=== PATIENT | female | born 1980 | race Asian ===

== ENCOUNTER → 2021-01-17 12:22 | Outpatient (CLI) | payer OTHER, SELFPAY ==
--- NOTE | 2021-01-17 12:23 | DI.US.S_ITS ---
PROCEDURE: US OB <= 14 WEEKS FETUS INDICATIONS: BLEEDING OUTSIDE/PRIOR DATING DATA: Last menstrual period (LMP): 11/27/20 LMP-based estimated date of delivery (WALE): 09/03/21. First dating scan (date and location): This study Estimated date of delivery (WALE) from first dating scan: 09/10/21 +/-5 days. TECHNIQUE: Real-time scanning was performed of the fetus and maternal pelvic organs, with image documentation. Endovaginal scanning was also performed to better visualize the fetus and maternal ovaries. COMPARISON: None. FINDINGS: Embryo: 6 mm crown-rump length, correlates with a gestational age estimate of 6 weeks 2 days. No cardiac activity was observed. Yolk sac was identified. The gestational sac is flaccid and irregular in its margination. Measurement variability in dating: +/- 4 weeks by LMP, +/- 7 days by mean sac diameter (use before 6 weeks gestation if crown-rump length not able to be measured), +/- 5 days by crown-rump length (up to 8 weeks 6 days gestation), +/- 7 days by crown-rump length (up to 13 weeks 6 days gestation). Maternal organs: Ovaries not seen.. IMPRESSION: Apparent demise, involuting gestational sac. No cardiac activity seen. Dictated by: Jeremias Tomas M.D. on 01/17/2021 at 13:39 Approved by: Jeremias Tomas M.D. on 01/17/2021 at 13:42
== END ==
PROVIDERS: PCP Family Medicine; Referring Provider Family Medicine; Visit Provider Family Medicine
DX: O20.9 Hemorrhage in early pregnancy, unspecified (principal)
CPT/HCPCS: 76801; 76817

== ENCOUNTER → 2021-01-23 12:34 | Outpatient (CLI) | payer OTHER, SELFPAY ==
--- NOTE | 2021-01-23 12:34 | DI.US.S_ITS ---
PROCEDURE: US OB TRANSVAGINAL INDICATIONS: /missed AB OUTSIDE/PRIOR DATING DATA: Last menstrual period (LMP): 11/27/2020 . LMP-based estimated date of delivery (WALE): 09/03/2021 . First dating scan (date and location): 01/17/2021, . Estimated date of delivery (WALE) from first dating scan: 09/10/2021. TECHNIQUE: Real-time scanning was performed of the fetus, with image documentation. Endovaginal scanning: Performed COMPARISON: [facility], OB <= 14 WEEKS FETUS, 01/17/2021, 12:54. FINDINGS: Nonviable early 1st trimester intrauterine . [place]-rump length without heartbeat. Previously, crown-rump length measured 0.6 cm, 6 weeks 2 days. Currently, it measures 0.5 cm, 6 weeks 1 day. IMPRESSION: Nonviable early 1st trimester intrauterine . Dictated by: Reilly Ortiz M.D. on 01/23/2021 at 14:41 Approved by: Reilly Ortiz M.D. on 01/23/2021 at 14:44
[2021-01-23 14:34] LABS: HCG Quantitative /Beta subunit 40775 mIU/mL
== END ==
PROVIDERS: PCP Family Medicine; Referring Provider Family Medicine; Visit Provider Family Medicine
DX: O02.1 Missed abortion (principal)
CPT/HCPCS: 36415; 76817; 84702

== ENCOUNTER → 2021-01-26 15:42 | Outpatient (CLI) | payer OTHER, SELFPAY ==
[2021-01-26 16:53] LABS: HCG Quantitative /Beta subunit 5418.8 mIU/mL
== END ==
PROVIDERS: PCP Family Medicine; Referring Provider Family Medicine; Visit Provider Family Medicine
DX: O02.1 Missed abortion (principal)
CPT/HCPCS: 36415; 84702

== ENCOUNTER → 2021-02-03 11:32 | Outpatient (CLI) | payer OTHER, SELFPAY ==
[2021-02-03 12:07] LABS: COVID19 -Nasal RAPID Negative (Negative)
== END ==
PROVIDERS: PCP Family Medicine; Visit Provider Obstetrics & Gynecology
DX: Z01.812 Encounter for preprocedural laboratory examination (principal); Z20.822 Contact with and (suspected) exposure to COVID-19
CPT/HCPCS: 87635

== ENCOUNTER 2021-02-03 12:08 | Day surgery (SDC) | payer OTHER, SELFPAY ==
--- NOTE | 2021-02-03 | PATH_ITS ---
[facility] Accession Number: [id number] . 01 Material submitted: . product of conception - PRODUCTS OF CONCEPTION . 02 Diagnosis: Products of Conception: Few chorionic villi present in a background of secretory and decidualized endometrium. No evidence of neoplasm. MRV 02/08/2021 1153 Local . 02 Electronically signed: . Shen Rocha MD, PhD, Pathologist NPI- [id number] . 01 Gross description: . Received one formalin-filled container, labeled with the patient's name and products of conception is an 11 gram, 4.0 x 4.0 x 1.5 cm aggregate of multiple irregular fragments of red-brown fibrous soft tissue and clot material within a filter bag and Telfa pads; distinct villous tissue is not clearly identified, the specimen is entirely submitted. . Summary of sections: A1-5: multiple pieces. ([id number]) /MRV 02/06/2021 1434 Local . 02 Pathologist provided ICD-10: O03.4 . 02 CPT . 852528 Performed at: 01 [facility] [address] [facility], [place], [place] [id number] MD Boom Russell MD Phone: [phone] Performed at: 02 [facility] [address] [place], [place] [id number] MD Huyen Mcdaniel MD Phone: [phone]
[2021-02-03 12:53] VITALS: BP 146/93; PULSE 87; RESP 20; TEMP 36.4; O2SAT 100; BMI 24.3
[2021-02-03] MEDS: LACTATED RINGERS 1,000 ML 42 ML IV (13:20)
--- NOTE | 2021-02-03 14:18 | P.HP_ITS ---
History of Present Illness History of Present Illness Date Patient Seen: 02/03/21 Time Patient Seen: 14:18 Chief complaint: SDC Narrative: Patient is a 40-year-old 2 para 1 with retained products conception after a missed treated medically. Patient History Family & Social History Family History Father Diabetes mellitus History of heart disease Hypertension Stroke Social History: household members spouse,family lives independently Yes caregiver/support person No Tobacco & Substance use: Smoking Status Never smoker alcohol intake never Substance Use Type does not use Meds Home Medications and Allergies Home Medications Medication Instructions Recorded Confirmed Type hydrocodone 5 mg-acetaminophen 325 1 tab PO Q8H PRN #5 tab 01/23/21 02/03/21 Rx mg tablet ondansetron 4 mg disintegrating 4 mg PO Q8H PRN #7 tab 01/23/21 02/03/21 Rx tablet Allergies Allergy/AdvReac Type Severity Reaction Status Date / Time No Known Drug Allergies Allergy Unverified 02/01/21 15:03 Exam Vital Signs (past 8 hours): - 02/03/21 12:53 Temperature 97.5 F L Pulse Rate 87 Respiratory Rate 20 Blood Pressure 146/93 H Pulse Oximetry 100 Oxygen Delivery Method Room Air Narrative Exam Narrative: Generally: Patient is sitting up on gurney, no acute distress Lungs: Clear to auscultation bilaterally Cardiovascular: Regular rate and rhythm Abdomen: Soft and flat. No guarding or rebound tenderness. No hepatosplenomegaly. No masses palpable. Bimanual exam: An 8 week size anteverted uterus. No adnexal masses or tender ness. Ultrasound thickened endometrium with hyperechoic material Assessment & Plan Assessment & Plan narrative: Assessment: 40-year-old 2 para 1 with retained products of conception after medical treatment of a missed Plan: Suction D&C The risks, benefits, and alternatives to the procedure were explained to the patient. The risks including bleeding, infection, and uterine perforation. She understands these risks and agrees to proceed. A full par Q was held and consent form was signed. COVID-19 COVID-19 status: Negative Result date/Date tested (Pos, Neg/Pending): 02/03/21 Time Spent With Patient Time with patient: less than 15 minutes
--- NOTE | 2021-02-03 14:21 | PM.PREOP ---
Pre-operative Note COVID-19 COVID-19 status: Negative Result date/Date tested (Pos, Neg/Pending): 02/03/21 Interval Note History & Physical reviewed/Exam performed by Physician: Yes Changes to H&P: No H&P completed within 30 days and has changed as indicated here:: 02/03/21
--- NOTE | 2021-02-03 14:55 | PM.GYNOP.1 ---
Operative Date/Time/Diagnoses Date of procedure: 02/03/21 Time of procedure: 14:55 Pre-op diagnosis: Incomplete spontaneous miscarriage Post-op diagnosis: same Procedure & Clinicians Procedure: Procedures Operation Date: 02/03/21 14:00 Actual Procedures Side Surgeon page Lambert&Isela Pennington MD Indications: Incomplete spontaneous miscarriage Continued bleeding Surgeon: Nirmala Pennington Anesthesia Type: General (LMA) Operative Notes Findings: Eight week size anteverted uterus Large amount of products conception Closure Type: not applicable Specimen(s): products of conception Estimated blood loss (mL): 15 Blood products transfused: none Procedure in detail: After informed consent was obtained, the patient was taken to the operating room where she was placed in the dorsal supine position. After adequate LMA general anesthesia was achieved, she was placed in the dorsal lithotomy position, and prepped and draped in the usual sterile fashion. A time-out was performed. A bimanual exam was performed which revealed an 8 week size anteverted uterus. A bivalve speculum was placed into the vagina and the anterior lip of the cervix grasped with a single-tooth tenaculum. There was a large mass sitting at the cervical os. This was grasped with the polyp forceps. The cervical os was dilated until the # 8 curved plastic curette could pass easily into the endometrial cavity. Several passes with suction revealed tissue and blood. Gentle sharp curettage was performed yielding minimal amount of tissue. Several more passes with suction revealed blood only. The curette was removed from the uterus. The single-tooth tenaculum was removed from the anterior lip of the cervix. The bivalve speculum was removed from the vagina. Sponge, lap, and instrument counts were correct x2. The patient tolerated the procedure well, and was taken to PACU in stable condition. Complications: none Post-operative Condition: stable Disposition: PACU Plan for aftercare: Home after recovery
[2021-02-03 15:03] VITALS: BP 124/80; PULSE 100; RESP 14; TEMP 36.2; O2SAT 98
--- NOTE | 2021-02-03 15:06 | SUR.OPER ---
Lithotomy on padded OR bed, head on pillow, arms secured on padded arm boards at <90 degrees abduction. Legs secured in padded yellow fins stirrups.
[2021-02-03 15:07] VITALS: BP 126/90; PULSE 96; RESP 13; O2SAT 96
[2021-02-03 15:12] VITALS: BP 125/86; PULSE 97; RESP 15; O2SAT 99
[2021-02-03 15:19] VITALS: BP 116/86; PULSE 91; RESP 14; TEMP 36.7; O2SAT 98
[2021-02-03 15:45] VITALS: BP 114/79; PULSE 96; RESP 16; TEMP 37; O2SAT 98
--- NOTE | 2021-02-03 17:10 | SUR.PHASEII ---
Late entry: pt brought to [facility], given tea per pt request, wanting to sleep for 20 min. Pt ready to go, dressed and left unit in stable condition.
== END 2021-02-03 16:00 | disposition home or self-care (01) ==
PROVIDERS: PCP Family Medicine; Referring Provider Family Medicine; Visit Provider Obstetrics & Gynecology
PROC: (CPT 58120; principal; 2021-02-03 14:00)
DX: O03.4 Incomplete spontaneous abortion without complication (principal); Z3A.08 8 weeks gestation of pregnancy; Z20.822 Contact with and (suspected) exposure to COVID-19
CPT/HCPCS: 59812; 87635; J1100; J1885; J2250; J2405; J2704; J3010

== ENCOUNTER → 2021-08-11 09:14 | Outpatient (CLI) | payer OTHER, SELFPAY ==
--- NOTE | 2021-08-11 09:15 | DI.US.S_ITS ---
PROCEDURE: US OB <= 14 WEEKS FETUS INDICATIONS: DATING OUTSIDE/PRIOR DATING DATA: Last menstrual period (LMP): 06/08/2021 LMP-based estimated date of delivery (WALE): 03/15/2022 First dating scan (date and location): 08/11/2021 Estimated date of delivery (WALE) from first dating scan: 03/13/2022. TECHNIQUE: Real-time scanning was performed of the fetus and maternal pelvic organs, with image documentation. Endovaginal scanning was also performed to better visualize the fetus and maternal ovaries. COMPARISON: [facility], , OB <= 14 WEEKS FETUS, 01/17/2021, 12:54. FINDINGS: Embryo: Single intrauterine gestational sac is seen with fetus and yolk sac noted. [place]-rump length measures 2.6 cm. Estimated gestational age is 9 weeks, 3 days. Heart rate: 168 beats per minute. Measurement variability in dating: +/- 4 weeks by LMP, +/- 7 days by mean sac diameter (use before 6 weeks gestation if crown-rump length not able to be measured), +/- 5 days by crown-rump length (up to 8 weeks 6 days gestation), +/- 7 days by crown-rump length (up to 13 weeks 6 days gestation). Maternal organs: 1.3 x 1.2 x 1.2 cm hyperechoic area in lower uterine segment inferior to the gestational sac is seen and show no internal vascularity. Complex cystic area involving right ovary is noted and measures 2.2 x 1.5 x 1.3 cm in size. IMPRESSION: 1. Single live intrauterine gestation with fetus and yolk sac seen. Estimated gestational age is 9 weeks, 3 days. heart rate is 168 beats per minute. 2. Avascular homogeneously hyperechoic structure is seen in lower uterine segment as above and is of indeterminate etiology. 3. Likely corpus luteal cyst seen in right ovary as above. Dictated by: Carlos Laura M.D. on 08/11/2021 at 11:46 Approved by: Carlos Laura M.D. on 08/11/2021 at 11:50
== END ==
PROVIDERS: PCP Family Medicine; Referring Provider Obstetrics & Gynecology; Visit Provider Obstetrics & Gynecology
DX: Z34.81 Encounter for supervision of other normal pregnancy, first trimester (principal); Z3A.09 9 weeks gestation of pregnancy
CPT/HCPCS: 76801; 76817

== ENCOUNTER → 2021-08-28 08:13 | Outpatient (CLI) | payer OTHER, SELFPAY ==
[2021-08-28 10:38] LABS: Appearance Urine UA CLEAR; Bilirubin Urine UA NEGATIVE (NEGATIVE); Color Urine UA YELLOW; Glucose Urine UA NEGATIVE (Negative); Ketones Urine UA NEGATIVE (NEGATIVE); Leukocyte Esterase Urine UA 1+ (NEGATIVE); Nitrite Urine UA NEGATIVE (Negative); Occult Blood Urine UA 1+ (Negative); Protein Urine UA NEGATIVE (Negative); Urobilinogen Urine UA 0.2 E.U./dL (0.2)
[2021-08-28 10:39] LABS: Bacteria Urine Few (2-10); Culture Indicated Urine Cult Not Indicated; RBC Urine 1-5/HPF (0-5/HPF); Squamous Epithelial Cell Urine 5-10 /HPF (0-5/HPF); WBC Urine 1-5/HPF (0-5/HPF)
[2021-08-28 10:40] LABS: Add Manual Diff / Slide Review NO; Basophils Absolute Auto 0 /uL (0-100); Basophils Percent Auto 0.2 % (0-2); Eosinophils Absolute Auto 0 /uL (0-450); Eosinophils Percent Auto 0.5 % (2-4); Hematocrit 38.3 % (36-46); Hemoglobin 12.9 g/dL (12.0-16.0); Lymphocytes Absolute Auto 1200 /uL (1100-4500); Mean Corpuscular HGB Conc 33.8 % (30-36); Mean Corpuscular Hemoglobin 27.2 PG (26-34); Mean Corpuscular Volume 80.5 fL (80-100); Monocytes Absolute Auto 400 /uL (0-900); Monocytes Percent Auto 5.6 % (3-14); Neutrophils Absolute Auto 5200 /uL (1500-7000); Neutrophils Percent Auto 75.7 % (50-75); Platelet Count 271 X10^3/uL (150-400); Red Blood Cell Count 4.76 X10^6/uL (4.0-5.2); Red Cell Distribution Width 15.4 % (11.6-14.8); White Blood Cell Count 6.8 X10^3/uL (4.5-11.0)
[2021-08-28 17:46] LABS: HIV 1 & 2 Ab/Ag 4th Gen Combo NEGATIVE (NEGATIVE); Hep C Virus Ab w/Reflex Quant NEGATIVE s/c (NEGATIVE); Hepatitis B Surface Antigen NEGATIVE s/c (NEGATIVE)
[2021-08-29 07:00] LABS: RPR Screen Non Reactive (Non Reactive)
[2021-08-29 08:36] LABS: Varicella IgG Antibody 972 index (Immune >165)
== END ==
PROVIDERS: Referring Provider Obstetrics & Gynecology; Visit Provider Obstetrics & Gynecology
DX: Z36.0 Encounter for antenatal screening for chromosomal anomalies (principal); O09.521 Supervision of elderly multigravida, first trimester
CPT/HCPCS: 36415; 80055; 81003; 81015; 81420; 86787; 86803; 86850; 86900; 86901; 87086; 87389

== ENCOUNTER → 2021-09-21 09:28 | Outpatient (CLI) | payer OTHER, SELFPAY ==
[2021-09-21 10:01] LABS: COVID19 -Nasal RAPID Negative (Negative)
== END ==
PROVIDERS: Referring Provider Obstetrics & Gynecology; Visit Provider Obstetrics & Gynecology
DX: Z01.812 Encounter for preprocedural laboratory examination (principal); Z20.822 Contact with and (suspected) exposure to COVID-19
CPT/HCPCS: 87635

== ENCOUNTER → 2021-09-21 09:38 | Day surgery (SDC) | payer OTHER, SELFPAY ==
[2021-09-21] VITALS (8 sets, daily range): BP systolic 105–125; BP diastolic 68–83; PULSE 73–97; RESP 16–18; TEMP 36.4–36.9; O2SAT 94–99; BMI 25.5
--- NOTE | 2021-09-21 | PATH_ITS ---
[facility] Accession Number: [id number] . 01 Material submitted: . product of conception - PRODUCTS OF CONCEPTION . 02 Diagnosis: Products of Conception: Products of conception identified. [facility] 09/25/2021 1224 Local . 02 Electronically signed: . Linda Daily MD, Pathologist NPI- [id number] . 01 Gross description: . The specimen is received in formalin, labeled products of conception and consists of multiple [place]-pink to red-brown fragments of soft tissue and clotted blood measuring 6.0 x 4.0 x 3.0 cm in aggregate. Possible chorionic villi are identified. No parts are identified. Trench Pipe Layer Helper sections are submitted in cassettes A1-A4. ([id number]) /[facility] 09/22/2021 1531 Local . 02 Pathologist provided ICD-10: O02.1 . 02 CPT . 781197 Performed at: 01 [facility] [address] [place] [id number] MD Boom Russell MD Phone: [phone] Performed at: 02 [facility] [address] [place], [place] [id number] MD Huyen Mcdaniel MD Phone: [phone]
--- NOTE | 2021-09-21 10:06 | DI.US.S_ITS ---
PROCEDURE: US OB LIMITED INDICATIONS: DEMISE; PRE-OP OUTSIDE/PRIOR DATING DATA: Last menstrual period (LMP): 06/08/2021. LMP-based estimated date of delivery (WALE): 04/04/2022. First dating scan (date and location): 08/11/2021. Estimated date of delivery (WALE) from first dating scan: 03/13/2022. The calculations are made using the ultrasound WALE of 03/03/2022. TECHNIQUE: Real-time scanning was performed of the uterus, with image documentation. Endovaginal scanning: Was performed for better visualization COMPARISON: [facility], , US OB <= 14 WEEKS FETUS, 08/11/2021, 9:33. [facility], , US OB <= 14 WEEKS FETUS, 08/21/2021, 11:43. [facility], , US OB >= 14 WEEKS FETUS, 09/18/2021, 11:55. FINDINGS: The previously seen intrauterine gestation is no longer seen. There is moderate to prominent heterogeneous debris seen along the endometrial stripe, which measures 6.4 x 2.9 x 4.6 cm. Minimal, potential vascularity can be seen within this debris. IMPRESSION: Spontaneous miscarriage, with the previously seen intrauterine gestation no longer seen. There is a broad area of heterogeneous material along the endometrial stripe, with minimal vascularity, likely related to retained products of conception. Dictated by: King Sherman M.D. on 09/21/2021 at 10:03 Approved by: King Sherman M.D. on 09/21/2021 at 10:06
--- NOTE | 2021-09-21 11:22 | SUR.PREOP ---
Pt to u/s on arrival per Dr. Pennington, pt now available for surgery per Dr. Pennington.
[2021-09-21] MEDS: LACTATED RINGERS 1,000 ML 100 ML IV (11:27)
--- NOTE | 2021-09-21 11:47 | PM.HP.1 ---
History of Present Illness History of Present Illness Date Patient Seen: 09/21/21 Time Patient Seen: 11:47 Chief complaint: DILATION & EVACUATION Narrative: Patient is a 41-year-old 3 para 1 with a 15 week intrauterine demise. Patient was originally scheduled for a D&E today. She was given Cytotec to place intra vaginal last evening. This was 600 micro g. Patient placed a tablets at 10:00 p.m.. At midnight she started having some cramping and at 4:00 a.m. she had a gush of fluid and passed the baby and the placenta. On arrival to the hospital she had an ultrasound which showed retained products conception. We will proceed with a suction D&C. Patient History Medical History (Updated 08/21/21 @ 11:52 by Nirmala Pennington MD) Healthy female Surgical History (Updated 09/19/21 @ 07:54 by Tere Lozano RN) Hx of dilation and curettage (02/03/21) Family & Social History Family History (Updated 08/22/21 @ 19:27 by Gabi Rodriguez) Father Diabetes mellitus History of heart disease Hypertension Stroke Mother No problems noted. Grandmother Diabetes mellitus History of heart disease Grandfather Hypertension Grandmother Unknown family medical history Grandfather Unknown family medical history Social History: household members spouse,family lives independently Yes caregiver/support person No Tobacco & Substance use: Smoking Status Never smoker alcohol intake never Substance Use Type does not use Meds Home Medications and Allergies Home Medications Medication Instructions Recorded Confirmed Type ondansetron 4 mg disintegrating 4 mg PO Q8H PRN #7 tab 01/23/21 09/19/21 Rx tablet prenat.vits,mickey,rlj-hksa-dzapf 1 tab PO DAILY 08/15/21 09/19/21 History Allergies Allergy/AdvReac Type Severity Reaction Status Date / Time No Known Drug Allergies Allergy Verified 09/21/21 09:50 Exam Vital Signs (past 8 hours): - 09/21/21 09:54 Temperature 98.2 F Pulse Rate 97 H Respiratory Rate 16 Blood Pressure 116/80 Pulse Oximetry 97 Oxygen Delivery Method Room Air Narrative Exam Narrative: HEENT: No thyromegaly, no anterior cervical or supraclavicular lymphadenopathy. Lungs:Clear to auscultation bilaterally, no wheezes. Cardiovascular: Regular rate and rhythm, no murmurs, rubs, or gallops. Abdomen: No scars. No hepatosplenomegaly. No masses palpable. External genitalia: Blood on perineum Vagina: Bleeding Cervix: Normal Bimanual exam: 10 Week size uterus. Mobile. Assessment & Plan Assessment & Plan narrative: Assessment: 41-year-old 3 para 1 with an intrauterine demise at 15 weeks gestation, with passage of the fetus and placenta at home Retained products of conception by ultrasound today Plan: Suction D&C The risks, benefits, and alternatives to the procedure were explained to the patient. The risks including bleeding, infection, and uterine perforation. Patient understands these risks and agrees to proceed. A full par Q was held and consent form was signed. COVID-19 COVID-19 status: Negative Result date/Date tested (Pos, Neg/Pending): 09/21/21 Time Spent With Patient Time with patient: less than 30 minutes Critical Care time: I spent a total of [] minutes of critical care time on this patient's care today; this time is exclusive of procedural time.
--- NOTE | 2021-09-21 11:50 | PM.PREOP ---
Pre-operative Note COVID-19 COVID-19 status: Negative Result date/Date tested (Pos, Neg/Pending): 09/21/21 Interval Note History & Physical reviewed/Exam performed by Physician: Yes Changes to H&P: No H&P completed within 30 days and has changed as indicated here:: 09/21/21
[2021-09-21] MEDS: CEFAZOLIN 2 GM/20 ML SYRINGE IV (12:52)
--- NOTE | 2021-09-21 12:59 | SUR.OPER ---
Lithotomy on padded OR bed, head on pillow, arms secured on padded arm boards at <90 degrees abduction. Legs secured in padded yellow fins stirrups.
--- NOTE | 2021-09-21 13:10 | P.OP_ITS ---
Operative Date/Time/Diagnoses Date of procedure: 09/21/21 Time of procedure: 13:10 Pre-op diagnosis: Retained products of conception Post-op diagnosis: same Procedure & Clinicians Procedure: Procedures Operation Date: 09/21/21 11:15 Actual Procedure Side Surgeon page Lambert&Isela Pennington MD Indications: Retained products of conception by ultrasound Patient delivered 15 week fetus at home this morning Surgeon: Nirmala Pennington Anesthesia Type: General (LMA) Operative Notes Findings: 10 week size anteverted uterus Large amount of products of conception in uterus Closure Type: not applicable Specimen(s): products of conception Estimated blood loss (mL): 75 Blood products transfused: none Procedure in detail: After informed consent was obtained, the patient was taken to the operating room where she was placed in the dorsal supine position. After adequate LMA general anesthesia was achieved, she was placed in the dorsal lithotomy position, and prepped and draped in the usual sterile fashion. A time-out was performed. A bivalve speculum was placed into the vagina. There were products of conception coming from the cervical os. These were grasped with a ring forcep. A single- tooth tenaculum was placed on the anterior lip of the cervix. The # 9 curved plastic curette passed easily into the endometrial cavity. Several passes with suction revealed a large amount of tissue. Gentle sharp curettage was performed yielding minimal amount of tissue. Several more passes with suction revealed blood only. The instruments were removed from the uterus. The single-tooth tenaculum was removed from the anterior lip of the cervix. The bivalve speculum was removed from the vagina. A bimanual exam revealed a well contracted 9 week size uterus. Sponge, lap, and instrument counts were correct x2. The patient tolerated the procedure well, and was taken to PACU in stable condition. Complications: none Post-operative Condition: stable Disposition: PACU Plan for aftercare: Home after recovery
--- NOTE | 2021-09-21 14:31 | SUR.PHASEII ---
Dr Pennington's office called regarding Rh- status. Per Dr Pennington, pt's blood type is B+.
== END | disposition home or self-care (01) ==
PROVIDERS: PCP Obstetrics & Gynecology; Referring Provider Obstetrics & Gynecology; Visit Provider Obstetrics & Gynecology
PROC: (CPT 58120; principal; 2021-09-21 11:15)
DX: O03.4 Incomplete spontaneous abortion without complication (principal); Z3A.15 15 weeks gestation of pregnancy; Z20.822 Contact with and (suspected) exposure to COVID-19
CPT/HCPCS: 59812; 76815; 76817; 87635; J0690; J1885; J2405; J2704; J3010

== ENCOUNTER → 2022-05-18 11:59 | Outpatient (CLI) | payer BC, SELFPAY ==
[2022-05-18 12:15] LABS: COVID19 -Nasal RAPID POSITIVE (Negative)
== END ==
PROVIDERS: PCP Family Medicine; Visit Provider Nurse Practitioner Family
DX: U07.1 COVID-19 (principal)
CPT/HCPCS: 87635

== ENCOUNTER 2022-05-30 23:21 | Observation (INO) | payer BC, SELFPAY ==
[2022-05-30 23:25] VITALS: BP 157/100; PULSE 90; RESP 18; TEMP 36.3; O2SAT 100; BMI 26.4
--- NOTE | 2022-05-31 00:08 | DI.CT.S_ITS ---
PROCEDURE: CT ANGIO HEAD AND NECK INDICATIONS: Left arm tingling TECHNIQUE: Pre-contrast 5 mm thick sections acquired from the foramen magnum to the vertex. After the administration of intravenous contrast, 1 mm thick sections acquired from the aortic arch through the [place] of [place]. Post-contrast 4.5 mm thick sections then re-acquired from the foramen magnum to the vertex. 3-dimensional qeilcvj-hnkbzyvev-henddehrpa (MIP) and/or volume rendering reformats were acquired of the central intracranial vasculature and neck separately. For radiation dose reduction, the following was used: automated exposure control, adjustment of mA and/or kV according to patient size. COMPARISON: None. FINDINGS: Image quality: Excellent. BRAIN: CSF spaces: Basal cisterns are patent. No extra-axial fluid collections. Ventricles are normal in size and shape. Brain: No intracranial hemorrhage, mass, or mass effect. Nice-white matter interface appears preserved. No abnormal intracranial enhancement. Skull and face: Calvarium and facial bones appear intact, without suspicious lesions. Orbits appear normal. Sinuses: Sinuses and mastoids are clear. HEAD CT ANGIOGRAPHY: Anterior circulation: Intracranial internal carotid arteries are normal in size and appear patent bilaterally. There is mild atherosclerotic calcification along the cavernous segments of the internal carotid arteries. The paired anterior cerebral arteries appear patent bilaterally. The anterior communicating artery also appears patent. The middle cerebral arteries appear patent bilaterally. No high-grade stenosis, occlusion, or filling defects. No cerebral aneurysms identified. Posterior circulation: Visualized portions of the vertebral arteries demonstrate normal caliber, and join to form a patent basilar artery. The posterior cerebral arteries appears patent bilaterally. No high-grade stenosis, occlusion, or filling defects. No cerebral aneurysms identified. NECK CT ANGIOGRAPHY: Carotid system: The great vessels demonstrate a conventional anatomy as they arise from the aortic arch. The origins of the common carotid arteries appear patent. The common carotid arteries demonstrate normal caliber and courses. The bifurcation regions are both widely patent. The internal carotid arteries demonstrate normal calibers and courses. Posterior circulation: The origins of the vertebral arteries both appear patent. The more superior extracranial portions of both vertebral arteries also demonstrate normal courses and calibers. They join to form a patent basilar artery. Soft tissues: Visualized neck soft tissues demonstrate no suspicious abnormalities. Bones: No suspicious bony lesions. Visualized cervical spine appears normally aligned. IMPRESSION: 1. No acute intracranial abnormality. 2. No high-grade stenosis or occlusion of the central intracranial arteries. 3. No high-grade stenosis or occlusion of the head and neck arteries. The carotid bulbs appear widely patent. Any quantitative measurements of stenosis were performed using NASCET criteria. Dictated by: Boom Granados M.D. on 05/31/2022 at 1:45 Approved by: Boom Granados M.D. on 05/31/2022 at 1:51
--- NOTE | 2022-05-31 00:11 | ED.NEUROSD ---
HPI - Neuro Symptoms/Deficit General Chief Complaint: Headache Stated Complaint: NECK PAIN, VOMITING, Time Seen by Provider: 05/30/22 23:55 Source: patient Mode of arrival: Ambulatory History of Present Illness HPI Narrative: Last well known at 6:00 p.m.. Tonight. Onset greater than 4 hours ago. Patient complains of left hand tingling that lasted about 5 minutes, she states it got better with rubbing the hand with her right hand. No slurred speech facial droop. No weakness. Patient was at work eating her lunch. She was getting to finish her shift at 6:30 p.m.. She did go home and took her blood pressure and it was higher than her baseline. Systolic 130. Past review of blood pressure measurements are lower. Patient states after the tingling of the hand she had vomiting and then headache then pain radiating down her posterior neck. These symptoms have resolved. Father with history of stroke in his 50s or 60s. Blood pressure noted here. Is elevated from baseline. Patient is slightly anxious. Patient is right-handed. Denies any previous neck problems or chronic neck pain. No history of migraine headaches Primary care is Dr. Morrell Patient outside of window for any tPA as well as exclusion as symptoms have resolved. On Anticoagulants: No Related Data Home Medications Medication Instructions Recorded Confirmed No Known Home Medications 05/31/22 05/31/22 Allergies Allergy/AdvReac Type Severity Reaction Status Date / Time No Known Drug Allergies Allergy Verified 05/18/22 11:57 Review of Systems Review of Systems Narrative: GENERAL: Denies chills, fatigue, malaise, fever, sweats. HEENT: Denies sinus pain, ear pain, sore throat RESPIRATORY: Denies dyspnea, cough CARDIOVASCULAR: Denies chest pain, palpitations GASTROINTESTINAL: Positive for nausea, vomiting, negative abdominal pain : Denies dysuria, frequency, hematuria MUSCULOSKELETAL: denies muscle or bony pain SKIN: Denies rash, skin lesions NEUROLOGIC: Denies weakness, positive headache and numbness ROS Unobtainable: All systems reviewed & are unremarkable except as noted in HPI and below Hematologic/Lymphatic On Anticoagulants: No Patient History Medical History Healthy female Surgical History Hx of dilation and curettage (02/03/21) Family History Father Diabetes mellitus History of heart disease Hypertension Stroke Mother No problems noted. Grandmother Diabetes mellitus History of heart disease Grandfather Hypertension Grandmother Unknown family medical history Grandfather Unknown family medical history Social History marital status: number of children: 1 household members: spouse and family lives independently: Yes caregiver/support person: No housing: house pets and animals: No education level: college (BS Accounting. ) occupational status: employed (Shipping department/collections associate) current occupational exposures/hazards: Yes (Maybe chemicals, not sure what types, enc'd to discuss with employer. ) isaiah/presybeterian: Muslim special isaiah needs: No seatbelt use: always do you feel safe at home: Yes Smoking Status: Never smoker second hand exposure: No alcohol intake: never substance use type: does not use during the past year weight has: remained stable well-balanced diet: daily or most days daily servings fruits/ve-4 caffeine: No (Quit with . ) Type(s) of exercise: normal ROM and activity (Lots of walking & lifting, constant moving at work. ) frequency: does not exercise Smoking Status: Never smoker Substance Use Type: does not use Exam Narrative Exam Narrative: GENERAL: in no distress, not toxic not dyspneic HEAD: Normocephalic. EYES: Pupils equal round No scleral icterus. ENT: Mucous membranes moist. NECK: Trachea midline. CARDIOVASCULAR: Regular rate and rhythm without murmurs RESPIRATORY: Clear to auscultation. Breath sounds equal bilaterally. No wheezes, rales, or rhonchi. GASTROINTESTINAL: Abdomen soft, non-tender EXTREMITIES: No gross deformities. BACK: No flank tenderness. NEURO: AOx4. Clear speech no facial droop steady self ?gait no foot drop. ?Light touch intact to bilateral face hands and feet. ?Strong equal chief maintenance supervisor bilaterally and ankle flexion hip flexion and knee flexion. ?Strong bilateral patellar reflexes. ?Steady Romberg, negative pronator drift SKIN: Warm and dry PSYCH: Not anxious, is cooperative Initial Vital Signs Initial Vital Signs: Vital Signs Temperature 97.3 F L 05/30/22 23:25 Pulse Rate 90 05/30/22 23:25 Respiratory Rate 18 05/30/22 23:25 Blood Pressure 157/100 H 05/30/22 23:25 Pulse Oximetry 100 05/30/22 23:25 Oxygen Delivery Method 05/30/22 23:25 Scores NIH Stroke Scale Level of Conciousness: Alert, keenly responsive Ask month/age: Answers both questions correctly. Open/close eyes, close hand: Performs both tasks correctly Best gaze horizontal: Normal Visual pierce: No visual loss Facial palsy: Normal symetrical movement Left arm drift: No drift for full 10 sec Right arm drift: No drift for full 10 sec Left leg drift: No drift for full 5 sec Right leg drift: No drift for full 5 sec Limb ataxia: Absent Sensory on face/arms/legs: Normal, no sensory loss Best language: No aphasia, normal Dysarthria: Normal Extinction or inattention: No abnormality Total NIH Stroke scale score: 0 Course Course Course Narrative: No new issues during course of stay Decision to Admit Date: 05/31/22 Decision to Admit time: 00:15 Orders Ordered: ED Orders 05/31/22 00:08 CT angio head and neck Stat EKG-12 Lead Stat 05/31/22 00:20 Complete Blood Count AUTO DIFF Stat Comprehensive Metabolic Panel Stat Troponin & CK Cardiac Panel Stat 05/31/22 02:15 COVID19 -Nasal RAPID/Pre-Proc Stat Acetaminophen (Acetaminophen 325 Mg Tablet) 650 mg PO Q6HR PRN PRN Reason: Fever/Mild Pain (1-3) Ondansetron HCl (Ondansetron 4 Mg/2 Ml Inj) 4 mg IV Q4HR PRN PRN Reason: Nausea And Vomiting Discontinued Medications Sodium Chloride (Normal Saline 0.9%) 500 mls @ 1,000 mls/hr IV BOLUS ONE Stop: 05/31/22 00:38 Last Infusion: 05/31/22 01:38 Dose: 0 mls/hr Documented By: Admin: 05/31/22 00:19 Dose: 1,000 mls/hr Documented By: AP Reevaluation(s) Reevaluation #1: Reviewed with patient and results. Agree for admit. They understand indication. With history of father having early stroke. Would be prudent for observation and balance workup for TIA Time: 02:43 Vital Signs Vital signs: Vital Signs - 8 hr 05/30/22 23:25 Temperature 97.3 F L Pulse Rate 90 Respiratory Rate 18 Blood Pressure 157/100 H Pulse Oximetry 100 Oxygen Delivery Method Room Air MDM - Neuro Symptoms/Deficit Differential Diagnosis Differential diagnosis: Likely carpal tunnel syndrome, subarachnoid hemorrhage, peripheral neuropathy, cerebrovascular accident, multiple sclerosis and transient cerebral ischemia Lab Data Result diagrams: 05/31/22 00:20 05/31/22 00:20 Labs: Lab Results 05/31/22 05/31/22 05/31/22 Range/Units 00:20 00:20 02:15 WBC 8.5 (4.5-11.0) X10^3/uL RBC 4.71 (4.0-5.2) X10^6/uL Hgb 13.0 (12.0-16.0) g/dL Hct 38.6 (36-46) % MCV 81.9 (80-100) fL MCH 27.6 (26-34) PG MCHC 33.7 (30-36) % RDW 13.9 (11.6-14.8) % Plt Count 291 (150-400) X10^3/uL Neut % (Auto) 76.2 H (50-75) % Lymph % (Auto) 17.2 L (25-40) % [place] % (Auto) 5.6 (3-14) % Eos % (Auto) 0.7 L (2-4) % Baso % (Auto) 0.3 (0-2) % Neut # (Auto) 6500 (2975-2808) /uL Lymph # (Auto) 1500 (8551-0307) /uL [place] # (Auto) 500 (0-900) /uL Eos # (Auto) 100 (0-450) /uL Baso # (Auto) 0 (0-100) /uL Sodium 139 (137-145) mmol/L Potassium 3.5 (3.4-5.1) mmol/L Chloride 102 (98-107) mmol/L Carbon Dioxide 29 (22-32) mmol/L BUN 15 (7-17) mg/dL Creatinine 0.72 (0.52-1.04) mg/dL Estimated GFR > 60 (>60) mL/min BUN/Creatinine Ratio 20.8 (6-22) Glucose 116 H (70-100) mg/dL Calcium 9.0 (8.4-10.2) mg/dL Total Bilirubin 0.7 (0.2-1.3) mg/dL AST 22 (14-36) IU/L ALT 41 H (<35) IU/L Alkaline Phosphatase 66 (38-126) U/L Total Creatine Kinase 79 (30-135) U/L CK-MB (CK-2) TNP CK-MB (CK-2) Rel Index TNP Troponin I < 0.012 (0.01-0.034) ng/mL Total Protein 8.2 (6.3-8.2) g/dL Albumin 4.5 (3.5-5.0) g/dL Globulin 3.7 (1.7-4.1) g/dL Albumin/Globulin Ratio 1.2 (1.0-2.8) SARS-CoV-2 (PCR) Negative (Negative) Imaging Data CTA - brain/neck: Radiologist's Impression: [address] [address] [address] Scan Report Signed Patient: Leidy Clark MR#: [id number] : 1980 Acct:[id number] Age/Sex: 41 / F Date of Service: 05/31/22 Loc: ED Accession Number: [id number] ?? Procedure: CT angio head and neck Ordering Provider: Good Francisco MD PROCEDURE:? CT ANGIO HEAD AND NECK ? INDICATIONS:? Left arm tingling ? TECHNIQUE:? Pre-contrast 5 mm thick sections acquired from the foramen magnum to the vertex.? After the administration of intravenous contrast, 1 mm thick sections acquired from the aortic arch through the [place].? Post-contrast 4.5 mm thick sections then re-acquired from the foramen magnum to the vertex.? 3-dimensional cuksjrh-nuugcrwxm-rmuxznvdqo (MIP) and/or volume rendering reformats were acquired of the central intracranial vasculature and neck separately. For radiation dose reduction, the following was used:? automated exposure control, adjustment of mA and/or kV according to patient size.? ? COMPARISON:? None. ? FINDINGS:? Image quality:? Excellent.? ? BRAIN:? CSF spaces:? Basal cisterns are patent.? No extra-axial fluid collections.? Ventricles are normal in size and shape.? ? Brain:? No intracranial hemorrhage, mass, or mass effect.? Nice-white matter interface appears preserved.? No abnormal intracranial enhancement.? ? Skull and face:? Calvarium and facial bones appear intact, without suspicious lesions.? Orbits appear normal.? ? Sinuses:? Sinuses and mastoids are clear.? ? HEAD CT ANGIOGRAPHY:? Anterior circulation:? Intracranial internal carotid arteries are normal in size and appear patent bilaterally.? There is mild atherosclerotic calcification along the cavernous segments of the internal carotid arteries.? The paired anterior cerebral arteries appear patent bilaterally.? The anterior communicating artery also appears patent. The middle cerebral arteries appear patent bilaterally.? No high-grade stenosis, occlusion, or filling defects.? No cerebral aneurysms identified. ? Posterior circulation:? Visualized portions of the vertebral arteries demonstrate normal caliber, and join to form a patent basilar artery.? The posterior cerebral arteries appears patent bilaterally.? No high-grade stenosis, occlusion, or filling defects.? No cerebral aneurysms identified. ? NECK CT ANGIOGRAPHY:? Carotid system:? The great vessels demonstrate a conventional anatomy as they arise from the aortic arch.? The origins of the common carotid arteries appear patent.? The common carotid arteries demonstrate normal caliber and courses.? The bifurcation regions are both widely patent.? The internal carotid arteries demonstrate normal calibers and courses.? ? Posterior circulation:? The origins of the vertebral arteries both appear patent.? The more superior extracranial portions of both vertebral arteries also demonstrate normal courses and calibers.? They join to form a patent basilar artery.? ? Soft tissues:? Visualized neck soft tissues demonstrate no suspicious abnormalities.? ? Bones:? No suspicious bony lesions.? Visualized cervical spine appears normally aligned.? IMPRESSION:? ? 1. No acute intracranial abnormality. ? 2. No high-grade stenosis or occlusion of the central intracranial arteries. ? 3. No high-grade stenosis or occlusion of the head and neck arteries.? The carotid bulbs appear widely patent.? ? Any quantitative measurements of stenosis were performed using NASCET criteria.? ? ? Dictated by: Boom Granados M.D. on 05/31/2022 at 1:45 ? ? Approved by: Boom Granados M.D. on 05/31/2022 at 1:51 ? ECG Data Interpretation: Normal sinus rhythm rate [address] elevation or depression MDM Narrative Medical decision making narrative: Appropriate for admission. Needs balance workup for TIA. Risk factors include father had stroke at her age. Reviewed with patient and . Agree for admit. Reviewed with Dr. Negron, on-call will admit Discharge Plan Departure Patient Disposition: Admitted as Observation Clinical Impression: TIA (transient ischemic attack) Admit Date/Time: 05/31/22 02:42 Admit Provider: Nathan Negron
[2022-05-31] MEDS: SODIUM CHLORIDE 0.9% 500 ML 1000 ML IV (00:19)
--- NOTE | 2022-05-31 00:35 | PC.NURSE ---
In triage her FAST exam was negative and her LAMS score was 0.
[2022-05-31 01:01] LABS: Add Manual Diff / Slide Review NO; Basophils Absolute Auto 0 /uL (0-100); Basophils Percent Auto 0.3 % (0-2); Eosinophils Absolute Auto 100 /uL (0-450); Eosinophils Percent Auto 0.7 % (2-4); Hematocrit 38.6 % (36-46); Lymphocytes Absolute Auto 1500 /uL (1100-4500); Lymphocytes Percent Auto 17.2 % (25-40); Mean Corpuscular HGB Conc 33.7 % (30-36); Mean Corpuscular Hemoglobin 27.6 PG (26-34); Mean Corpuscular Volume 81.9 fL (80-100); Monocytes Absolute Auto 500 /uL (0-900); Monocytes Percent Auto 5.6 % (3-14); Neutrophils Absolute Auto 6500 /uL (1500-7000); Neutrophils Percent Auto 76.2 % (50-75); Platelet Count 291 X10^3/uL (150-400); Red Blood Cell Count 4.71 X10^6/uL (4.0-5.2); Red Cell Distribution Width 13.9 % (11.6-14.8); White Blood Cell Count 8.5 X10^3/uL (4.5-11.0)
[2022-05-31 01:13] LABS: Alanine Aminotransferase 41 IU/L (<35); Albumin 4.5 g/dL (3.5-5.0); Albumin Globulin Ratio 1.2 (1.0-2.8); Alkaline Phosphatase 66 U/L (38-126); Aspartate Aminotransferase 22 IU/L (14-36); BUN Creatinine Ratio 20.8 (6-22); Bilirubin Total 0.7 mg/dL (0.2-1.3); Blood Urea Nitrogen 15 mg/dL (7-17); Carbon Dioxide 29 mmol/L (22-32); Chloride 102 mmol/L (98-107); Creatine Kinase 79 U/L (30-135); Estimated Glomerular Filt Rate > 60 mL/min (>60); Globulin 3.7 g/dL (1.7-4.1); Glucose 116 mg/dL (70-100); HEMOLYSIS < 15 (0-50); Potassium 3.5 mmol/L (3.4-5.1); Sodium 139 mmol/L (137-145); Total Protein 8.2 g/dL (6.3-8.2)
[2022-05-31 01:23] LABS: Troponin I < 0.012 ng/mL (0.01-0.034)
[2022-05-31 02:44] LABS: COVID19 -Nasal RAPID Negative (Negative)
[2022-05-31 02:48] VITALS: BMI 26.4
[2022-05-31 04:41] VITALS: BP 130/88; PULSE 77; RESP 18; TEMP 36.2; O2SAT 98
--- NOTE | 2022-05-31 07:03 | DI.MRI.S_ITS ---
PROCEDURE: MR HEAD/BRAIN WO CON INDICATIONS: weakness in left arm TECHNIQUE: Noncontrast axial T1 spin echo, axial T2 fast spin echo, sagittal and axial FLAIR, coronal T2 fast spin echo, axial gradient echo, axial diffusion and ADC through the brain. COMPARISON: [facility], CT, CT ANGIO HEAD AND NECK, 05/31/2022, 0:19. FINDINGS: Image quality: Excellent. CSF Spaces: Basal cisterns are patent. No extra-axial fluid collections. Ventricles are normal in size and shape. Brain: There are a few small foci of T2 weighted hyperintensity seen within the deep white matter, primarily involving the left frontal lobe, as on series 7, images 17 and 18. No intracranial masses or hemorrhage. Nice/white matter interface is normal. Brainstem appears normal. Diffusion-weighted images demonstrate no acute ischemic insult. No chronic ischemic insults. Normal intravascular flow voids are present. Skull and face: Calvarium has normal marrow signal. Orbits appear normal. Sinuses: Sinuses and mastoids are clear. IMPRESSION: No findings of acute or subacute infarction can be seen. No imaging explanation is found for this patient's presenting symptoms. A few small foci of T2 weighted hyperintensity can be seen within the deep white matter, which are nonspecific. However, they are most likely to be related to early chronic small vessel ischemic change. Differential diagnosis includes a demyelinating process (including multiple sclerosis) yet this is considered to be less likely. Dictated by: King Sherman M.D. on 05/31/2022 at 9:42 Approved by: King Sherman M.D. on 05/31/2022 at 9:44
--- NOTE | 2022-05-31 07:08 | P.HP_ITS ---
History of Present Illness History of Present Illness Date Patient Seen: 05/31/22 Time Patient Seen: 07:08 Chief complaint: NECK PAIN, VOMITING, Narrative: 41-year-old female with no significant past medical history presented to the emergency department yesterday evening. Patient came in with multiple concerns. She says yesterday evening she was sitting down eating pizza. Her left hand became numb. She tried to shake it out. She could move it. It was tingly it lasted for about 5 minutes. Then it went away. Patient after that said she was nervous. She went home and checked her blood pressure was 130/100 which was higher than normal for her. She then began to felt like she had some pain in her neck and headache she then became nauseated and she threw up. She called her brother and her brother told her to take some garlic and go to the hospital which she did. This was about to 4 hours after the initial vent. She says she is feeling just fine now. She has no symptoms at all. She has never had symptoms like this before she is not nauseated she has hung hungry for vital signs are stable and her blood pressure is normal. In the emergency department she had laboratory testing done including a CT angiogram was which was normal Dr. Grullon was worried because she had a family history of stroke. CT angio was negative. Overnight her telemetry monitoring shows normal sinus rhythm. Discussed her findings with her this morning. As she is now asymptomatic and feeling much better. Due to her age and risk factors which are none. Other than her family history and a normal telemetry monitoring the chances of this being at abnormality due to her heart we will hold off on an echocardiogram. Will proceed with an MRI of her brain to rule out ischemic events she has had a angiogram which shows no significant arterial dissections or vascular disease. Patient History Medical History Healthy female Surgical History Hx of dilation and curettage (02/03/21) Family & Social History Family History Father Diabetes mellitus History of heart disease Hypertension Stroke Mother No problems noted. Grandmother Diabetes mellitus History of heart disease Grandfather Hypertension Grandmother Unknown family medical history Grandfather Unknown family medical history Social History: household members spouse,family lives independently Yes caregiver/support person No Safety & Behavioral: Feels Safe in Current Yes Environment Tobacco & Substance use: Smoking Status Never smoker alcohol intake never Substance Use Type does not use Meds Home Medications and Allergies Home Medications Medication Instructions Recorded Confirmed Type No Known Home Medications 05/31/22 05/31/22 History Allergies Allergy/AdvReac Type Severity Reaction Status Date / Time No Known Drug Allergies Allergy Verified 05/18/22 11:57 Exam Vital Signs (past 8 hours): - 05/30/22 23:25 05/31/22 04:41 Temperature 97.3 F L 97.1 F L Pulse Rate 90 77 Respiratory Rate 18 18 Blood Pressure 157/100 H 130/88 Pulse Oximetry 100 98 Oxygen Delivery Method Room Air Oxygen Delivery Method Room Air Narrative Exam Narrative: Gen.: Alert and oriented x3 no apparent distress. HEENT: NCAT PERRLA tympanic membranes are clear nares are patent oral mucosa is moist no tonsillar hypertrophy neck is supple without lymphadenopathy no thyroid enlargement. Cardio: S1-S2 regular rate and rhythm no murmurs appreciated. Respiratory: Lungs are clear to auscultation no wheezes or crackles normal respiratory effort. Abdomen: Soft nontender no rebound or guarding no liver spleen enlargement no appreciable hernias Extremities: Full range of motion no appreciable weakness no cyanosis or edema. Neurologic: Grossly intact. Objective Labs Result Diagrams: 05/31/22 00:20 05/31/22 00:20 Labs: Laboratory Results - last 24 hr 05/31/22 05/31/22 05/31/22 00:20 00:20 02:15 WBC 8.5 RBC 4.71 Hgb 13.0 Hct 38.6 MCV 81.9 MCH 27.6 MCHC 33.7 RDW 13.9 Plt Count 291 Neut % (Auto) 76.2 H Lymph % (Auto) 17.2 L [place] % (Auto) 5.6 Eos % (Auto) 0.7 L Baso % (Auto) 0.3 Neut # (Auto) 6500 Lymph # (Auto) 1500 [place] # (Auto) 500 Eos # (Auto) 100 Baso # (Auto) 0 Sodium 139 Potassium 3.5 Chloride 102 Carbon Dioxide 29 BUN 15 Creatinine 0.72 Estimated GFR > 60 BUN/Creatinine Ratio 20.8 Glucose 116 H Calcium 9.0 Total Bilirubin 0.7 AST 22 ALT 41 H Alkaline Phosphatase 66 Total Creatine Kinase 79 CK-MB (CK-2) TNP CK-MB (CK-2) Rel Index TNP Troponin I < 0.012 Total Protein 8.2 Albumin 4.5 Globulin 3.7 Albumin/Globulin Ratio 1.2 SARS-CoV-2 (PCR) Negative Assessment & Plan Assessment and plan (1) Transient neurological symptoms: Status: Acute (2) Nausea: Status: Acute (3) Vomiting: Status: Acute (4) Headache: Status: Acute Assessment & Plan narrative: Patient with a transient neurological symptom of left hand weakness associated with nausea vomiting and headache. Patient has a family history in a father of a stroke at the age of 50. Patient has no significant risk factors for stroke including diabetes heart disease smoking. Patient's vital signs are normal and patient has resorted back to normal function. Discussed with her today. She has no electrical abnormalities. Do an MRI stroke protocol this morning. If MRI stroke protocol is normal we will go ahead and discharge the patient home with close follow-up with her primary care physician Time Spent With Patient Critical Care time: I spent a total of [] minutes of critical care time on this patient's care today; this time is exclusive of procedural time.
--- NOTE | 2022-05-31 07:20 | PM.DS.1 ---
History of Present Illness History of Present Illness Chief complaint: NECK PAIN, VOMITING, Narrative: 41-year-old female with no significant past medical history presented to the emergency department yesterday evening. Patient came in with multiple concerns. She says yesterday evening she was sitting down eating pizza. Her left hand became numb. She tried to shake it out. She could move it. It was tingly it lasted for about 5 minutes. Then it went away. Patient after that said she was nervous. She went home and checked her blood pressure was 130/100 which was higher than normal for her. She then began to felt like she had some pain in her neck and headache she then became nauseated and she threw up. She called her brother and her brother told her to take some garlic and go to the hospital which she did. This was about to 4 hours after the initial vent. She says she is feeling just fine now. She has no symptoms at all. She has never had symptoms like this before she is not nauseated she has hung hungry for vital signs are stable and her blood pressure is normal. In the emergency department she had laboratory testing done including a CT angiogram was which was normal Dr. Grullon was worried because she had a family history of stroke. CT angio was negative. Overnight her telemetry monitoring shows normal sinus rhythm. Discussed her findings with her this morning. As she is now asymptomatic and feeling much better. Due to her age and risk factors which are none. Other than her family history and a normal telemetry monitoring the chances of this being at abnormality due to her heart we will hold off on an echocardiogram. Will proceed with an MRI of her brain to rule out ischemic events she has had a angiogram which shows no significant arterial dissections or vascular disease. Discharge Providers Provider Date of admission: 05/31/22 02:42 Discharge Date: 05/31/22 Primary care physician: Maria Dolores Morrell MD Discharge provider: Nathan Negron MD Summary Hospital Course Discharge Diagnosis: Transient neurological event Hospital Course: Patient admitted the hospital monitored overnight. Patient had no further neurological symptoms no nausea no vomiting and headache and was back to normal baseline CT angiogram reviewed which were normal. Patient was monitored overnight with telemetry which showed no acute arrhythmias. MRI stroke protocol was normal without acute changes. Small white matter possibly ischemic changes on MRI that are chronic and early. No concerning findings for acute stroke. Patient was provided this information and discharged home to follow-up with her primary care provider Exam Vital Signs (past 8 hours): - 05/30/22 23:25 05/31/22 04:41 Temperature 97.3 F L 97.1 F L Pulse Rate 90 77 Respiratory Rate 18 18 Blood Pressure 157/100 H 130/88 Pulse Oximetry 100 98 Oxygen Delivery Method Room Air Oxygen Delivery Method Room Air Objective Labs Result Diagrams: 05/31/22 00:20 05/31/22 00:20 Labs: Laboratory Results - last 24 hr 05/31/22 05/31/22 05/31/22 00:20 00:20 02:15 WBC 8.5 RBC 4.71 Hgb 13.0 Hct 38.6 MCV 81.9 MCH 27.6 MCHC 33.7 RDW 13.9 Plt Count 291 Neut % (Auto) 76.2 H Lymph % (Auto) 17.2 L Mason % (Auto) 5.6 Eos % (Auto) 0.7 L Baso % (Auto) 0.3 Neut # (Auto) 6500 Lymph # (Auto) 1500 Mason # (Auto) 500 Eos # (Auto) 100 Baso # (Auto) 0 Sodium 139 Potassium 3.5 Chloride 102 Carbon Dioxide 29 BUN 15 Creatinine 0.72 Estimated GFR > 60 BUN/Creatinine Ratio 20.8 Glucose 116 H Calcium 9.0 Total Bilirubin 0.7 AST 22 ALT 41 H Alkaline Phosphatase 66 Total Creatine Kinase 79 CK-MB (CK-2) TNP CK-MB (CK-2) Rel Index TNP Troponin I < 0.012 Total Protein 8.2 Albumin 4.5 Globulin 3.7 Albumin/Globulin Ratio 1.2 SARS-CoV-2 (PCR) Negative [facility] Medical History Healthy female Surgical History Hx of dilation and curettage (02/03/21) Family History Father Diabetes mellitus History of heart disease Hypertension Stroke Mother No problems noted. Grandmother Diabetes mellitus History of heart disease Grandfather Hypertension Grandmother Unknown family medical history Grandfather Unknown family medical history Social History marital status: number of children: 1 household members: spouse and family lives independently: Yes caregiver/support person: No housing: house pets and animals: No education level: college (BS Accounting. ) occupational status: employed (Shipping department/account services associate) current occupational exposures/hazards: Yes (Maybe chemicals, not sure what types, enc'd to discuss with employer. ) isaiah/taoism: Rastafarian special isaiah needs: No seatbelt use: always do you feel safe at home: Yes Smoking Status: Never smoker second hand exposure: No alcohol intake: never substance use type: does not use during the past year weight has: remained stable well-balanced diet: daily or most days daily servings fruits/ve-4 caffeine: No (Quit with . ) Type(s) of exercise: normal ROM and activity (Lots of walking & lifting, constant moving at work. ) frequency: does not exercise Discharge Plan Discharge orders & Medications Discharge Orders: Discharge (Order); Ordered 05/31/22 Ordered By: Nathan Negron Prescriptions: No Action No Known Home Medications Follow up/Referrals: Maria Dolores Morrell MD [Primary Care Provider] - Discharge Data Primary Care Provider: Maria Dolores Morrell Attending Provider: Nathan Negron
[2022-05-31 09:07] VITALS: BP 114/81; PULSE 71; RESP 16; TEMP 36.4; O2SAT 98
--- NOTE | 2022-05-31 11:19 | CM.DANOTE ---
DCP Assessment: Payor: [facility] PCP: MD Porsche Pt is a 41 y.o. F who presented to the ED with complaints of left hand tingling, headache, vomiting, and neck pain. Pt has no significant PMH. Pt was admitted under observation for workup of TIA and further management of symptoms. DCP met with pt this morning to discuss discharge needs. Pt sitting up in bed with spouse, Benja, at bedside. DCP introduced herself and role. Pt states that she lives in [place] with her spouse and children, in a three story home. Pt states that she is independent at baseline and still drives POV. Pt denies any DME use. Pt has supportive spouse. Pt denies any resources at this time. DCP does not identify any needs. Whiteboard updated and instructed to call with any other questions that might arise. Pt thankful for the discussion. P: Pt to have an MRI and if negative, pt to discharge home. Once cleared for discharge, pt to discharge home via spouse POV. Carly Masterson RN/MALENA Discharge Planning/Care Management CM Discharge Assessment Start: 05/31/22 11:13 Freq: Status: Active Protocol: Document 05/31/22 11:14 LUCERO (Rec: 05/31/22 11:14 LUCERO [id number]) Discharge Planning Assessment Assigned Electrical System Specialist Carly Masterson RN/MALENA Advance Directives? No History Provided By Patient Prior Living Arrangements House Household Members spouse,family Type of transporation used prior to Drives own vehicle admit Independent with ADL's Yes Is patient alert and oriented? Yes Caregiver for Another No Discharge Plan Home Transportation Arrangement Spouse POV Referrals Initiated None needed Whiteboard Updated in Patient Room with Yes name and ext. # of Electrical System Specialist Comment Instructed to call Review Status In Process Please Provide Date Initial DC 05/31/22 Assessment Was Performed Next Review Type Continued Stay Review
== END 2022-05-31 11:30 | disposition home or self-care (01) ==
LOC: ED 05-31 02:40 → AC 05-31 02:42
PROVIDERS: Admitting Provider Family Medicine; Emergency Provider Emergency Medicine; PCP Family Medicine; Visit Provider Family Medicine
DX: R11.0 Nausea (principal); R11.10 Vomiting, unspecified; R51.9 Headache, unspecified; R20.2 Paresthesia of skin; R29.700 NIHSS score 0; Z20.822 Contact with and (suspected) exposure to COVID-19
CPT/HCPCS: 36415; 70496; 70498; 70551; 80053; 82550; 84484; 85025; 87635; 93005; 93010; 96360; 99234; 99284; C9803; G0378; Q9967

== ENCOUNTER → 2022-08-17 08:49 | Outpatient (CLI) | payer BC, SELFPAY ==
[2022-08-14 08:10] VITALS: BMI 26.4
[2022-08-17 10:07] LABS: Cholesterol 177 mg/dL (140-199); Glucose 85 mg/dL (70-100); HDL Cholesterol 43 mg/dL (40-60); LDL Cholesterol Calculated 121 mg/dL (<100); Triglycerides 65 mg/dL (35-150)
== END ==
PROVIDERS: PCP Family Medicine; Referring Provider Physician Assistant; Visit Provider Physician Assistant
DX: R73.9 Hyperglycemia, unspecified (principal); E78.5 Hyperlipidemia, unspecified
CPT/HCPCS: 36415; 80061; 82947

== ENCOUNTER → 2023-07-22 09:01 | Outpatient (CLI) | payer BC, SELFPAY ==
[2022-08-14 08:10] VITALS: BMI 26.4
[2023-07-22 09:46] LABS: Add Manual Diff / Slide Review NO; Basophils Absolute Auto 0 /uL (0-100); Basophils Percent Auto 0.6 % (0-2); Eosinophils Absolute Auto 100 /uL (0-450); Hematocrit 38.2 % (36-46); Hemoglobin 12.8 g/dL (12.0-16.0); Lymphocytes Absolute Auto 1700 /uL (1100-4500); Lymphocytes Percent Auto 27.9 % (25-40); Mean Corpuscular HGB Conc 33.6 % (30-36); Mean Corpuscular Hemoglobin 28.1 PG (26-34); Mean Corpuscular Volume 83.6 fL (80-100); Monocytes Absolute Auto 300 /uL (0-900); Monocytes Percent Auto 5.4 % (3-14); Neutrophils Absolute Auto 4100 /uL (1500-7000); Neutrophils Percent Auto 65.1 % (50-75); Platelet Count 269 X10^3/uL (150-400); Red Blood Cell Count 4.57 X10^6/uL (4.0-5.2); Red Cell Distribution Width 13.2 % (11.6-14.8); White Blood Cell Count 6.3 X10^3/uL (4.5-11.0)
[2023-07-22 10:14] LABS: Alanine Aminotransferase 21 IU/L (<35); Albumin Globulin Ratio 1.3 (1.0-2.8); Alkaline Phosphatase 52 U/L (38-126); Aspartate Aminotransferase 16 IU/L (14-36); BUN Creatinine Ratio 12.5 (6-22); Bilirubin Total 0.7 mg/dL (0.2-1.3); Blood Urea Nitrogen 8 mg/dL (7-17); Calcium 9.2 mg/dL (8.4-10.2); Carbon Dioxide 27 mmol/L (22-32); Chloride 105 mmol/L (98-107); Cholesterol 156 mg/dL (140-199); Estimated Glomerular Filt Rate > 60 mL/min (>60); Glucose 90 mg/dL (70-100); HDL Cholesterol 43 mg/dL (40-60); HEMOLYSIS < 15 (0-50); LDL Cholesterol Calculated 97 mg/dL (<100); Potassium 4.3 mmol/L (3.4-5.1); Sodium 139 mmol/L (137-145); Triglycerides 81 mg/dL (35-150)
== END ==
PROVIDERS: PCP Family Medicine; Referring Provider Physician Assistant; Visit Provider Physician Assistant
DX: R29.818 Other symptoms and signs involving the nervous system (principal); Z82.3 Family history of stroke; Z82.49 Family history of ischemic heart disease and other diseases of the circulatory system; Z13.220 Encounter for screening for lipoid disorders; Z13.6 Encounter for screening for cardiovascular disorders
CPT/HCPCS: 36415; 80053; 80061; 85025

== ENCOUNTER → 2024-02-22 | Outpatient (CLI) | payer BC, SELFPAY ==
[2022-08-14 08:10] VITALS: BMI 26.4
--- NOTE | 2024-02-22 08:54 | DI.MG.S_ITS ---
BILATERAL DIGITAL SCREENING MAMMOGRAM 3D/2D WITH CAD: 02/22/2024 CLINICAL: Baseline exam. Routine screening. Family history of breast cancer. Mammogram 02/21/2015 [facility]. Both breasts are heterogeneously dense, which may obscure small masses (category c / 51-75% glandular tissue). Current study was also evaluated with a Computer Aided Detection (CAD) system. There are benign masses in the right breast. There also are benign calcifications in the right breast. Additionally, there is a biopsy clip in the right breast. There is an oval mass with an obscured margin in the right breast at 8 o'clock posterior depth. This is more prominent. No other significant masses, calcifications, or other findings are seen in either breast. IMPRESSION: INCOMPLETE: NEEDS ADDITIONAL IMAGING EVALUATION The oval mass in the right breast resembles a cyst or a fibroadenoma and is indeterminate. Additional views with possible ultrasound are recommended. Based on the Tyrer Cuzick model (a risk assessment model) the patient's lifetime risk is 17.5% and her 10 year risk is 2.7%. According to the ACR, ACS, and NCCN guidelines, an annual breast MRI exam along with mammogram is recommended if the patient's lifetime risk is 20% or greater. This exam was interpreted at Station ID: [id number]. NOTE: For mammograms, a report in lay terms will be sent to the patient. Approximately 15% of breast malignancies will not be visualized mammographically. In the management of a palpable breast mass, a negative mammogram must not discourage biopsy of a clinically suspicious lesion. Electronically Signed By: Montrell Ureña M.D. [facility]/:03/02/2024 18:33:35 letter sent: Additional Imaging Needed ACR BI-RADS Category 0: Incomplete 3340F
== END ==
LOC: MAMMO 08:53
PROVIDERS: PCP Family Medicine; Referring Provider Family Medicine; Visit Provider Family Medicine
DX: Z12.31 Encounter for screening mammogram for malignant neoplasm of breast (principal); Z80.3 Family history of malignant neoplasm of breast; R92.333 Mammographic heterogeneous density, bilateral breasts
CPT/HCPCS: 77063; 77067

== ENCOUNTER → 2024-03-20 09:47 | Outpatient (CLI) | payer BC, SELFPAY ==
[2022-08-14 08:10] VITALS: BMI 26.4
--- NOTE | 2024-03-20 09:47 | DI.MG.S_ITS ---
UNILATERAL RIGHT DIGITAL DIAGNOSTIC MAMMOGRAM 3D/2D WITH ADDITIONAL VIEWS: 03/20/2024 CLINICAL: Additional evaluation requested from prior study. Comparison is made to exam dated: 02/22/2024 mammogram - [facility]. The right breast is heterogeneously dense, which may obscure small masses (category c / 51-75% glandular tissue). There is a 2.7 cm oval mass with a circumscribed margin in the right breast at 8 o'clock middle depth. This corresponds to finding seen on recent screening mammogram. There are additional oval circumscribed masses one of which contains benign dystrophic calcifications. There is a biopsy clip in the right breast. No other significant masses or calcifications are seen in the breast. IMPRESSION: INCOMPLETE: NEEDS ADDITIONAL IMAGING EVALUATION The 2.7 cm oval mass in the right breast is indeterminate. An ultrasound is recommended for further evaluation and is scheduled to immediately follow this examination. Based on the Tyrer Cuzick model (a risk assessment model) the patient's lifetime risk is 17.5% and her 10 year risk is 2.7%. According to the ACR, ACS, and NCCN guidelines, an annual breast MRI exam along with mammogram is recommended if the patient's lifetime risk is 20% or greater. This exam was interpreted at Station ID: [id number]. NOTE: For mammograms, a report in lay terms will be sent to the patient. Approximately 15% of breast malignancies will not be visualized mammographically. In the management of a palpable breast mass, a negative mammogram must not discourage biopsy of a clinically suspicious lesion. Electronically Signed By: Negrita Kumari M.D., Ph.D. eb/:03/20/2024 11:28:38 ACR BI-RADS Category 0: Incomplete 3340F
--- NOTE | 2024-03-20 09:48 | DI.US.S_ITS ---
LIMITED ULTRASOUND OF RIGHT BREAST AND AXILLA: 03/20/2024 CLINICAL: Patient returns for additional imaging over a suspected mass in the right breast. Comparison is made to exams dated: 03/20/2024 mammogram and 02/22/2024 mammogram - [facility]. Color flow and real-time ultrasound of the right breast 8 o'clock, and axilla regions were performed. Nice scale images of the real-time examination were reviewed. There is an oval hypoechoic mass with a circumscribed margin in the right breast at 8 o'clock, 5.5 cm from the nipple. This mass measures 1.9 x 1.9 x 2.3 cm. This correlates with mammography findings. Color flow imaging demonstrates that there is vascularity present. There is an adjacent hypoechoic oval circumscribed mass containing internal dystrophic calcifications at 8 o'clock, 4.5 cm from the nipple. This finding corresponds to the mammographic mass with benign dystrophic calcifications consistent with a benign involuting fibroadenoma. IMPRESSION: SUSPICIOUS OF MALIGNANCY Right breast 2.3 cm oval circumscribed mass at 8 o'clock position. Finding may represent a fibroadenoma is at low suspicion for malignancy. Recommend ultrasound guided core biopsy. Findings and recommendations were discussed with the patient by Dr. Medina during today's examination. This exam was interpreted at Station ID: [id number]. Electronically Signed By: Negrita Kumari M.D., Ph.D. eb/:03/20/2024 11:35:10 letter sent: Biopsy Required Ultrasound BI-RADS: 4a Low suspicion for malignancy
== END ==
LOC: MAMMO 09:47
PROVIDERS: PCP Family Medicine; Referring Provider Family Medicine; Visit Provider Family Medicine
DX: R92.8 Other abnormal and inconclusive findings on diagnostic imaging of breast (principal); N63.13 Unspecified lump in the right breast, lower outer quadrant; N60.01 Solitary cyst of right breast; R92.331 Mammographic heterogeneous density, right breast
CPT/HCPCS: 76642; 77065; G0279

== ENCOUNTER → 2024-04-14 10:03 | Outpatient (CLI) | payer BC, SELFPAY ==
[2022-08-14 08:10] VITALS: BMI 26.4
--- NOTE | 2024-04-14 | DI.MG.S_ITS ---
UNILATERAL RIGHT DIGITAL DIAGNOSTIC MAMMOGRAM 3D/2D - RIGHT BREAST POST-PROCEDURE IMAGING FOR MARKER PLACEMENT: 04/14/2024 CLINICAL: Post right breast ultrasound biopsy, clip placement imaging. Comparison is made to exams dated: 03/20/2024 mammogram, 02/22/2024 mammogram, 03/20/2024 ultrasound, and 04/14/2024 ultrasound biopsy - [facility]. The right breast is heterogeneously dense, which may obscure small masses (category c / 51-75% glandular tissue). This corresponds to finding seen on recent baseline screening mammogram. There is a vision marker clip in the appropriate position in the right breast at 8 o'clock anterior depth at the biopsy site. IMPRESSION: POST PROCEDURE MAMMOGRAM FOR MARKER PLACEMENT There was a successful vision marker clip placement in the right breast anterior depth. This exam was interpreted at Station ID: [id number]. Electronically Signed By: Montrell Ureña M.D. slc/:04/14/2024 12:14:28 ACR BI-RADS Category Post-procedure mammogram for marker placement
--- NOTE | 2024-04-14 | PATH_ITS ---
[facility] Accession Number: [id number] No. of containers..01 Tissue . 01 Material submitted: . breast - RIGHT BREAST 8:00 MASS 5 CMFN . 01 Diagnosis: RIGHT BREAST 8:00 MASS 5 CMFN: Fibroepithelial lesion, consistent with fibroadenoma. No cytologic atypia, increased mitoses, or stromal proliferation identified. LYK 04/17/2024 1210 Local . 01 Comment: As part of routine ict quality assurance engineer, this case was also reviewed by Dr. Baird, who agrees with the interpretation. . 01 Electronically signed: . Linda Daily MD, Pathologist NPI- [id number] . 01 Gross description: . Received is one formalin-filled container labeled with the patient's name and designated right breast 8 o'clock mass 5 cm FN. The specimen is received with plastic filter in container and sample loose in container, and consists of multiple fragments of yellow-cortez soft tissue which range in size from 0.2 x 0.2 x 0.2 cm to 2.0 x 0.3 x 0.2 cm. All fragments are totally submitted in cassette A1. . Possible collection date and time per requisition 04/14/2024 at 1105 hours. Total fixation time approximately 16 hours. ([id number]) /IRIS 04/15/2024 0621 Local . 01 Pathologist provided ICD-10: D24.1 . 01 CPT . 261812 Specimen Comment: A courtesy copy of this report has been sent to [facility]ology Performed at: [address] [address], [place], [place] [id number] MD Boom Russell MD Phone: [phone]
--- NOTE | 2024-04-14 10:04 | DI.US.S_ITS ---
ULTRASOUND GUIDED BIOPSY RIGHT BREAST WITH MARKING DEVICE INSERTED AND POST DIGITAL MAMMOGRAPHIC IMAGIN04/14/2024 CLINICAL: Right breast mass. PATIENT CONSENT: Risks (minor bleeding, infection, vasovagal reaction and repeat procedure), benefits and alternatives were explained to the patient and written informed consent was obtained. Correlation is made to exams dated: 03/20/2024 ultrasound, 03/20/2024 mammogram, 02/22/2024 mammogram, and 04/14/2024 mammogram - [facility]. An ultrasound guided biopsy using real-time ultrasound was performed for the 2.3 cm x 1.9 cm x 1.8 cm circumscribed oval mass located in the right breast at 8 o'clock middle depth 5.5 cm from the nipple. This was described on the previous ultrasound report. The skin was prepped in the usual manner. An 18 gauge biopsy needle was placed adjacent to the abnormality under ultrasound guidance. Once the needle was documented to be in the correct location, five specimens were obtained using an automated biopsy gun. A vision clip was inserted into the biopsy cavity. Post procedure digital mammographic imaging demonstrates the location device at the targeted area. The specimens were sent to the laboratory for pathological analysis. IMPRESSION: ULTRASOUND GUIDED BIOPSY BENIGN Ultrasound guided biopsy of the 2.3 cm x 1.9 cm x 1.8 cm mass in the right breast at 8 o'clock middle depth 5.5 cm from the nipple was successful with no apparent post procedure complications. Pathology indicates benign fibroadenoma (FA). Pathology results are concordant with imaging findings. A 1 year screening mammogram is recommended. This exam was interpreted at Station ID: [id number]. Montrell Ureña M.D. slc/:04/20/2024 11:16:05
== END ==
PROVIDERS: PCP Family Medicine; Referring Provider Family Medicine; Visit Provider Family Medicine
DX: D24.1 Benign neoplasm of right breast (principal); R92.331 Mammographic heterogeneous density, right breast
CPT/HCPCS: 19083; 77065